=== PATIENT | female | born 1980 | race African-American/Black ===

== ENCOUNTER 2017-10-14 01:01 | Inpatient (IN) ==
[2017-10-14] MEDS: SODIUM CHLORIDE 0.9% 1,000 ML IV SCH ×2 (03:57→23:40)
[2017-10-14] MEDS: PIPERACILLIN/TAZOBACTAM 3,375 MG in SODIUM CHLORIDE 0.9% 100 ML IV SCH ×3 (04:23→20:42)
[2017-10-14 05:30] LABS: Basophils % 0.6 % (0.0-0.8); Eosinophils # 0.1 10*3/uL (0.0-0.87); Eosinophils % 2.9 % (0.00-10.9); Hematocrit 33.3 VOL% (35.7-47.0); Hemoglobin 11.5 GM/DL (12.0-16.0); Immature Granulocytes % 0.4 %; Immature Granulocytes Absolute 0.02 #; Lymphocytes # 2.1 10*3/uL (1.4-4.0); Mean Corpuscular HGB Conc 34.5 GM/DL (32-36); Mean Corpuscular Hemoglobin 31 PG (27-34); Mean Corpuscular Volume 89.5 FL (87-102); Mean Platelet Volume 10.2 FL (9.6-12.0); Monocytes # 0.3 10*3/uL (0.11-0.8); Monocytes % 6.1 % (1.7-12.7); Neutrophils # 2.2 10*3/uL (1.4-7.4); Platelet Count 321 T/CUMM (130-400); Red Blood Count 3.72 MC/CUMM (3.8-5.5); Red Cell Distribution Width 11.3 % (9.3-17.3); White Blood Count 4.8 T/CUMM (4-12)
[2017-10-14 05:56] LABS: Albumin 3.7 G/DL (3.4-5.0); Bilirubin,Total 2.9 MG/DL (0.2-1.0); Calcium 8.8 MG/DL (8.5-10.1); Osmolality,Calculated 279.4 MOS/KG (273-304); Potassium 4.1 MMOL/L (3.5-5.1); Risk Ratio 4.36; Total Protein 6.7 G/DL (6.4-8.3); VLDL CHOLESTEROL 55.4 MG/DL
[2017-10-14 10:20] LABS: INR 0.9
[2017-10-14] MEDS ORDERED: KETAMINE 500 MG/10 ML VIAL ONE (11:45)
[2017-10-14] MEDS ORDERED: fentaNYL 100 MCG/2 ML VIAL ONE (11:45)
[2017-10-14] MEDS ORDERED: MIDAZOLAM 2 MG/2 ML VIAL ONE (11:46)
[2017-10-14] MEDS ORDERED: PROPOFOL 200 MG/20 ML VIAL IV ONE (12:55)
[2017-10-14] MEDS ORDERED: ONDANSETRON 4 MG/2 ML VIAL ONE ×2 (12:55→14:27)
[2017-10-14] MEDS ORDERED: GLUCAGON 1 MG VIAL ONE (13:14)
[2017-10-14] MEDS: ONDANSETRON 4 MG/2 ML VIAL IV PRN ×2 (14:30→20:38)
[2017-10-14] MEDS ORDERED: MEPERIDINE 50 MG/1 ML VIAL ONE (14:59)
[2017-10-14] MEDS ORDERED: MEPERIDINE 50 MG/1 ML VIAL IV ONE (14:59)
[2017-10-14] MEDS ORDERED: INDOMETHACIN SUPP 50 MG SUPP RECTAL ONE (15:02)
[2017-10-14] MEDS: MORPHINE 10 MG/1 ML VIAL IV PRN (20:33)
[2017-10-15 04:11] LABS: Basophils % 0.1 % (0.0-0.8); Eosinophils # 0.1 10*3/uL (0.0-0.87); Eosinophils % 1.2 % (0.00-10.9); Hematocrit 31.3 VOL% (35.7-47.0); Hemoglobin 11.2 GM/DL (12.0-16.0); Immature Granulocytes % 0.3 %; Immature Granulocytes Absolute 0.02 #; Lymphocytes # 1.4 10*3/uL (1.4-4.0); Lymphocytes % 17.8 % (21.3-54.2); Mean Corpuscular HGB Conc 35.8 GM/DL (32-36); Mean Corpuscular Hemoglobin 31 PG (27-34); Mean Corpuscular Volume 87.2 FL (87-102); Mean Platelet Volume 10.2 FL (9.6-12.0); Monocytes # 0.6 10*3/uL (0.11-0.8); Monocytes % 7.1 % (1.7-12.7); Neutrophils # 5.7 10*3/uL (1.4-7.4); Neutrophils % 73.5 % (38.7-73.9); Platelet Count 305 T/CUMM (130-400); Red Blood Count 3.59 MC/CUMM (3.8-5.5); Red Cell Distribution Width 11.3 % (9.3-17.3); White Blood Count 7.8 T/CUMM (4-12)
[2017-10-15] MEDS: PIPERACILLIN/TAZOBACTAM 3,375 MG in SODIUM CHLORIDE 0.9% 100 ML IV SCH ×3 (04:20→21:05)
[2017-10-15 04:51] LABS: Albumin 3.4 G/DL (3.4-5.0); Bilirubin,Total 1.4 MG/DL (0.2-1.0); Calcium 8.3 MG/DL (8.5-10.1); Osmolality,Calculated 284.8 MOS/KG (273-304); Potassium 3.8 MMOL/L (3.5-5.1); Total Protein 6.4 G/DL (6.4-8.3)
[2017-10-15] MEDS ORDERED: BUPIVACAINE 0.25% 50 ML VIAL ONE (14:21)
[2017-10-15] MEDS ORDERED: TISSUE ADHESIVE 1 EACH APPLICATOR TOP ONE ×2 (14:21→15:19)
[2017-10-15] MEDS ORDERED: ceFAZolin 1,000 MG VIAL ONE (14:38)
[2017-10-15] MEDS ORDERED: HYDROmorphone 2 MG/1 ML VIAL ONE (15:38)
[2017-10-15] MEDS ORDERED: PROPOFOL 200 MG/20 ML VIAL IV ONE (15:38)
[2017-10-15] MEDS ORDERED: fentaNYL 100 MCG/2 ML VIAL ONE (15:38)
[2017-10-15] MEDS ORDERED: MIDAZOLAM 2 MG/2 ML VIAL ONE (15:39)
[2017-10-15] MEDS ORDERED: ROCURONIUM 100 MG/10 ML VIAL IV ONE (15:39)
[2017-10-15] MEDS ORDERED: KETOROLAC 30 MG/1 ML VIAL ONE (15:39)
[2017-10-15] MEDS ORDERED: GLYCOPYRROLATE 0.4 MG/2 ML VIAL ONE (15:39)
[2017-10-15] MEDS ORDERED: DEXAMETHASONE 10 MG/1 ML VIAL ONE (15:39)
[2017-10-15] MEDS ORDERED: NEOSTIGMINE 10 MG/10 ML VIAL ONE (15:39)
[2017-10-15] MEDS ORDERED: ONDANSETRON 4 MG/2 ML VIAL ONE (15:39)
[2017-10-15] MEDS ORDERED: SEVOFLURANE 1 UNIT/15 MINUTE INH ONE (15:39)
[2017-10-15] MEDS: DEXT 5% NACL 0.45% KCL 20 MEQ 20 MEQ/1,000 ML BAG IV SCH ×2 (17:01→20:32)
[2017-10-15] MEDS: MORPHINE 10 MG/1 ML VIAL IV PRN (19:25)
[2017-10-15] MEDS: ONDANSETRON 4 MG/2 ML VIAL IV PRN (21:17)
[2017-10-16] MEDS: PIPERACILLIN/TAZOBACTAM 3,375 MG in SODIUM CHLORIDE 0.9% 100 ML IV SCH (04:42)
[2017-10-16 04:58] LABS: Basophils % 0.1 % (0.0-0.8); Hematocrit 32.8 VOL% (35.7-47.0); Hemoglobin 11.2 GM/DL (12.0-16.0); Immature Granulocytes % 0.4 %; Immature Granulocytes Absolute 0.03 #; Lymphocytes # 0.9 10*3/uL (1.4-4.0); Lymphocytes % 11.8 % (21.3-54.2); Mean Corpuscular HGB Conc 34.1 GM/DL (32-36); Mean Corpuscular Hemoglobin 31 PG (27-34); Mean Corpuscular Volume 89.9 FL (87-102); Mean Platelet Volume 10.6 FL (9.6-12.0); Monocytes # 0.3 10*3/uL (0.11-0.8); Neutrophils # 6.1 10*3/uL (1.4-7.4); Neutrophils % 83.7 % (38.7-73.9); Platelet Count 345 T/CUMM (130-400); Red Blood Count 3.65 MC/CUMM (3.8-5.5); Red Cell Distribution Width 11.2 % (9.3-17.3); White Blood Count 7.3 T/CUMM (4-12)
[2017-10-16 05:33] LABS: Albumin 3.3 G/DL (3.4-5.0); Calcium 8.6 MG/DL (8.5-10.1); Osmolality,Calculated 285.5 MOS/KG (273-304); Total Protein 6.6 G/DL (6.4-8.3)
[2017-10-16] MEDS: DEXT 5% NACL 0.45% KCL 20 MEQ 20 MEQ/1,000 ML BAG IV SCH (06:45)
[2017-10-16 08:37] VITALS: BP 143/93
== END 2017-10-16 11:50 | disposition home or self-care (01) | DRG 417 ==
LOC: EDUNIT# → EDBD → N.ED 01:01 → N.EDINP 02:33 → N.3E 02:53
PROVIDERS: ADMIT Hospitalist; ATTEND Hospitalist
PROC: ERCPWSP (ICD-10-PCS; 2017-10-14 12:35)